=== PATIENT | female | born 1965 | race Caucasian/White ===

== ENCOUNTER 2016-06-26 10:05 | Emergency (ER) | payer OTHER ==
[~2016-06-26] VITALS: Ht 170.2 cm; Wt 86.0 kg
[~2016-06-26 10:05] MED LIST: ACID REDUCER75 MG PO; FLONASE16 G1 BOTH NARES; FLONASE16 GM NS; LORAZEPAM1 MG PO; LOSARTAN-HCTZ1 EAC2 PO; LOSARTAN-HCTZ1 EACH PO; MOTRIN800 MG PO; NEURONTIN100 MG PO; PERCOCET 5/31 TABLET PO; SERTRALINE HCL100 MG PO; TUMS500 MG PO; VALIUM5 MG PO; XARELTO15 MG PO; XARELTO20 MG PO; ZYRTEC PO; ZYRTEC10 M3 PO
[2016-06-26] MEDS ORDERED: LOSARTAN-HCTZ1 EAC1 PO (11:47)
[2016-06-26] MEDS ORDERED: MOTRIN400 MG PO (13:46)
[2016-06-26 14:01] VITALS: BP 124/64
== END 2016-06-26 14:02 | disposition home or self-care (01) ==
LOC: EME 10:05
DX: S83.92XA Sprain of unspecified site of left knee, initial encounter (principal); S30.0XXA Contusion of lower back and pelvis, initial encounter; S80.212A Abrasion, left knee, initial encounter; W00.0XXA Fall on same level due to ice and snow, initial encounter; I10 Essential (primary) hypertension; Z86.718 Personal history of other venous thrombosis and embolism; Z83.2 Family history of diseases of the blood and blood-forming organs and certain disorders involving the immune mechanism
CPT/HCPCS: 73564; 99281; 99284